=== PATIENT | female | born 1985 | race Caucasian/White ===

== ENCOUNTER 2018-10-16 13:14 | Emergency (ER) | payer MEDICAID, OTHER ==
[~2018-10-16 13:14] MED LIST: CYCL-1 PO; DIPH-423 PO; ONDA4TAB6 PO; ORPH100T2 PO; OXYC-145 PO; PANT-47 PO
--- NOTE | 2018-10-16 15:01 | NUR ---
PT CALLED TO TRIAGE X3, NOT IN LOBBY. ATTEMPTED TO CALL PT, PHONE # IS NOT A WORKING NUMBER
== END 2018-10-16 16:43 | disposition left against medical advice (07) ==
LOC: ER 13:15
DX: F41.9 Anxiety disorder, unspecified (principal); Z53.21 Procedure and treatment not carried out due to patient leaving prior to being seen by health care provider

== ENCOUNTER 2019-02-10 09:07 | Emergency (ER) | payer MEDICAID, OTHER ==
[~2019-02-10] VITALS: Ht 172.7 cm; Wt 48.5 kg
[2019-02-10 09:49] LABS: BASOPHILS % (AUTO) 0.4 % (0-1); EOSINOPHILS % (AUTO) 0.4 % (0-6); HEMATOCRIT 42.4 % (35.0-45.0); HEMOGLOBIN 14.1 g/dl (12.0-16.0); LYMPHOCYTES # (AUTO) 1.9 X10'3 (1.1-4.8); LYMPHOCYTES % (AUTO) 26.2 % (21-51); MEAN CORPUSCULAR HEMOGLOBIN 31.5 PG (27.0-31.0); MEAN CORPUSCULAR HGB CONC 33.3 g/dL (33.0-36.5); MEAN CORPUSCULAR VOLUME 94.6 FL (78-98); MEAN PLATELET VOLUME 7.4 FL (7.4-10.4); MONOCYTES # (AUTO) 0.6 X10'3 (0-0.9); MONOCYTES % (AUTO) 8.8 % (2-12); NEUTROPHILS # (AUTO) 4.6 X10'3 (1.8-7.7); NEUTROPHILS % (AUTO) 64.2 % (42-75); PLATELET COUNT 282 X10'3 (140-440); RED BLOOD COUNT 4.48 X10'6 (4.20-5.60); RED CELL DISTRIBUTION WIDTH 12.6 % (11.5-14.5); WHITE BLOOD COUNT 7.2 X10'3 (4.5-11.0)
[2019-02-10 10:03] LABS: ALANINE AMINOTRANSFERASE 19 U/L (12-78); ALKALINE PHOSPHATASE 74 IU/L (46-116); AMYLASE 68 U/L (25-115); ANION GAP 11 (8-16); ASPARTATE AMINO TRANSFERASE 12 U/L (10-37); BILIRUBIN,TOTAL 0.3 MG/DL (0.1-1.0); BLOOD UREA NITROGEN 9 MG/DL (7-18); BUN/CREATININE RATIO 13.2 (6.6-38.0); CALCIUM 9.3 MG/DL (8.5-10.1); CHLORIDE 105 MMOL/L (99-107); CREATININE 0.68 MG/DL (0.40-0.90); GLUCOSE 89 MG/DL (70-104); LIPASE 155 U/L (73-393); POTASSIUM 3.8 MMOL/L (3.5-5.1); SODIUM 141 MMOL/L (135-145); TOTAL CARBON DIOXIDE 24.7 MMOL/L (24-32); TOTAL PROTEIN 8.1 G/DL (6.4-8.2); eGFR > 90 ML/MIN
[2019-02-10 10:10] LABS: CLARITY,URINE CLOUDY (Clear); COLOR,URINE YELLOW (Yellow); GLUCOSE, URINE NEGATIVE (Neg); KETONES,URINE NEGATIVE (Neg); LEUKOCYTE ESTERASE ,URINE SMALL (Neg); NITRITES, URINE POSITIVE (Neg); OCCULT BLOOD,URINE NEGATIVE (Neg); PROTEIN,URINE 30 mg/dl (Neg); UA COLLECTION TYPE CLN CATCH MIDSTREAM
[2019-02-10 10:12] LABS: URINE HCG NEGATIVE (NEG)
[2019-02-10 10:17] LABS: BACTERIA,URINE 4+ /HPF (Neg); MUCUS STRANDS MODERATE /LPF (Neg); RBC,URINE 0-2 /HPF (0-2); SQUAMOUS EPITHELIAL CELL,UR MANY /LPF (FEW); WBC,URINE 30-50 /HPF (0-4)
[2019-02-10] MEDS ORDERED: ondansetron/PF 4mg/2ml inj IV ONE (10:30)
[2019-02-10] MEDS ORDERED: morphine 4 MG/ML inj SYRINge IV PRN (10:30)
[2019-02-10] MEDS ORDERED: normal saline 1000ML IV soln IVB ONE (10:30)
[2019-02-10 10:35] LABS: TRICHOMONAS,URINE FEW /HPF (NEGATIVE)
[2019-02-10 11:01] VITALS: BP 103/65
--- NOTE | 2019-02-10 11:02 | NUR ---
pt given a cup of water, pt is sipping on the water with no n/v at this time.
[2019-02-10] MEDS ORDERED: PROC-8 PO (11:23)
== END 2019-02-10 12:12 | disposition home or self-care (01) ==
LOC: ER 09:08
DX: R10.11 Right upper quadrant pain (principal); R11.2 Nausea with vomiting, unspecified; J45.909 Unspecified asthma, uncomplicated; G89.29 Other chronic pain; F12.90 Cannabis use, unspecified, uncomplicated; Z98.890 Other specified postprocedural states; Z88.3 Allergy status to other anti-infective agents; Z79.899 Other long term (current) drug therapy
CPT/HCPCS: 36415; 80053; 81001; 81025; 82150; 83690; 85025; 85610; 96374; 96375; 99283; J2270; J2405; J7030

== ENCOUNTER 2019-02-13 17:03 | Inpatient (IN) | payer MEDICAID ==
[~2019-02-13] VITALS: Ht 172.7 cm; Wt 72.0 kg
[~2019-02-13 17:03] MED LIST changes: +PROC-8 PO
[2019-02-13 17:52] LABS: CLARITY,URINE CLOUDY (Clear); COLOR,URINE YELLOW (Yellow); GLUCOSE, URINE NEGATIVE (Neg); KETONES,URINE NEGATIVE (Neg); LEUKOCYTE ESTERASE ,URINE TRACE (Neg); NITRITES, URINE POSITIVE (Neg); OCCULT BLOOD,URINE NEGATIVE (Neg); PH,URINE 6.5 (4.8-8.0); PROTEIN,URINE NEGATIVE (Neg); UA COLLECTION TYPE CLN CATCH MIDSTREAM; UROBILINOGEN,URINE 0.2 E.U/dL (0.2-1.0)
[2019-02-13 17:53] LABS: URINE HCG NEGATIVE (NEG)
[2019-02-13 18:18] LABS: BACTERIA,URINE 2+ /HPF (Neg); RBC,URINE NONE SEEN /HPF (0-2); SQUAMOUS EPITHELIAL CELL,UR FEW /LPF (FEW)
[2019-02-13 18:22] LABS: BASOPHILS % (AUTO) 0.4 % (0-1); EOSINOPHILS # (AUTO) 0.1 X10'3 (0-0.9); EOSINOPHILS % (AUTO) 0.7 % (0-6); HEMATOCRIT 38.6 % (35.0-45.0); HEMOGLOBIN 13.1 g/dl (12.0-16.0); LYMPHOCYTES # (AUTO) 3.6 X10'3 (1.1-4.8); LYMPHOCYTES % (AUTO) 35.1 % (21-51); MEAN CORPUSCULAR HEMOGLOBIN 32.2 PG (27.0-31.0); MEAN CORPUSCULAR VOLUME 94.8 FL (78-98); MEAN PLATELET VOLUME 7.7 FL (7.4-10.4); MONOCYTES # (AUTO) 0.7 X10'3 (0-0.9); MONOCYTES % (AUTO) 7.2 % (2-12); NEUTROPHILS # (AUTO) 5.8 X10'3 (1.8-7.7); NEUTROPHILS % (AUTO) 56.6 % (42-75); PLATELET COUNT 274 X10'3 (140-440); RED BLOOD COUNT 4.08 X10'6 (4.20-5.60); RED CELL DISTRIBUTION WIDTH 12.4 % (11.5-14.5); WHITE BLOOD COUNT 10.2 X10'3 (4.5-11.0)
[2019-02-13] MEDS ORDERED: morphine 4 MG/ML inj SYRINge IV ONE ×2 (18:25→20:30)
[2019-02-13] MEDS ORDERED: ondansetron/PF 4mg/2ml inj IV ONE (18:25)
[2019-02-13] MEDS ORDERED: normal saline 1000ML IV soln IVB ONE (18:25)
[2019-02-13 18:36] LABS: ALANINE AMINOTRANSFERASE 22 U/L (12-78); ALBUMIN 3.8 G/DL (3.4-5.0); ALBUMIN/GLOBULIN RATIO 1.1 (1.1-1.5); ALKALINE PHOSPHATASE 67 IU/L (46-116); ANION GAP 8 (8-16); ASPARTATE AMINO TRANSFERASE 13 U/L (10-37); BILIRUBIN,TOTAL 0.2 MG/DL (0.1-1.0); BLOOD UREA NITROGEN 9 MG/DL (7-18); BUN/CREATININE RATIO 11.1 (6.6-38.0); CHLORIDE 106 MMOL/L (99-107); CREATININE 0.81 MG/DL (0.40-0.90); GLUCOSE 98 MG/DL (70-104); LIPASE 199 U/L (73-393); POTASSIUM 3.8 MMOL/L (3.5-5.1); SODIUM 143 MMOL/L (135-145); TOTAL CARBON DIOXIDE 28.6 MMOL/L (24-32); TOTAL PROTEIN 7.4 G/DL (6.4-8.2); eGFR 82 ML/MIN
[2019-02-13] MEDS ORDERED: cephalexin 250mg capsule PO ONE (19:40)
[2019-02-13] MEDS ORDERED: CefTRIAXone 250MG IM Kit w/LIDOcaine IM ONE (19:45)
[2019-02-13] MEDS ORDERED: ondansetron/PF 4mg/2ml inj IV PRN (19:55)
[2019-02-13] MEDS ORDERED: magnesium 4gm in 100ml NS 100 ML IV PRN (19:55)
[2019-02-13] MEDS ORDERED: potassium Cl 20 mEq SR tablet PO PRN ×2 (19:55)
[2019-02-13] MEDS ORDERED: magnesium 2GM in 50ml NS 50 ML IV PRN (19:55)
[2019-02-13] MEDS ORDERED: magnesium Cl slow-release 64mg tablet PO PRN (19:55)
[2019-02-13] MEDS ORDERED: potassium CL 10mEq/100ml bag 100 ML IV PRN ×2 (19:55)
[2019-02-13] MEDS ORDERED: NO HOME MEDS (20:01)
[2019-02-13] MEDS: CefTRIAXone/D5W-Rocephin 1gm 50 ML IV SCH (20:19)
--- NOTE | 2019-02-13 21:25 | NUR ---
Patient in room [facility]. I have received report from nurse Peter RN from the ER and had the opportunity to ask questions and assume patient care.
[2019-02-13 21:32] VITALS: BP 108/70
--- NOTE | 2019-02-13 23:00 | NUR ---
Ns running at 100ml/hr as ordered. Piv site without s/s of complications. Addendum: 02/14/19 at 0742 by Stacy Santacruz RN Amended: Links added.
[2019-02-13] MEDS: normal saline 1000ml 1,000 ML IV SCH (23:59)
[2019-02-14] VITALS (15 sets, daily range): BP systolic 54–142; BP diastolic 40–111
[2019-02-14] MEDS: morphine 2 MG/ML inj. syringe IV PRN ×2 (00:02→08:04)
--- NOTE | 2019-02-14 00:05 | NUR ---
Pt. arrived on unit via w/c accompanied by ones of the ER staff member at approximately 2130. Pt is A& O and is mobile. Pt is NPO this shift. C/o mld pain though states, " they gave me pain medication in the ER." IV NS running at 100ml/hr as ordered. Iv. site without s/s of complications noted. No c/o n/v this shift. Addendum: 02/14/19 at 0521 by Stacy Santacruz RN Amended: Links added.
[2019-02-14 05:13] LABS: BASOPHILS % (AUTO) 0.4 % (0-1); EOSINOPHILS # (AUTO) 0.1 X10'3 (0-0.9); EOSINOPHILS % (AUTO) 1.5 % (0-6); LYMPHOCYTES # (AUTO) 3.4 X10'3 (1.1-4.8); LYMPHOCYTES % (AUTO) 42.2 % (21-51); MEAN CORPUSCULAR HEMOGLOBIN 31.5 PG (27.0-31.0); MEAN CORPUSCULAR HGB CONC 33.4 g/dL (33.0-36.5); MEAN CORPUSCULAR VOLUME 94.2 FL (78-98); MEAN PLATELET VOLUME 7.6 FL (7.4-10.4); MONOCYTES # (AUTO) 0.6 X10'3 (0-0.9); MONOCYTES % (AUTO) 8.1 % (2-12); NEUTROPHILS # (AUTO) 3.8 X10'3 (1.8-7.7); NEUTROPHILS % (AUTO) 47.8 % (42-75); PLATELET COUNT 231 X10'3 (140-440); RED BLOOD COUNT 3.82 X10'6 (4.20-5.60); RED CELL DISTRIBUTION WIDTH 12.6 % (11.5-14.5)
[2019-02-14 05:30] LABS: ALANINE AMINOTRANSFERASE 33 U/L (12-78); ALBUMIN 2.9 G/DL (3.4-5.0); ALBUMIN/GLOBULIN RATIO 0.9 (1.1-1.5); ALKALINE PHOSPHATASE 58 IU/L (46-116); ANION GAP 10 (8-16); ASPARTATE AMINO TRANSFERASE 23 U/L (10-37); BILIRUBIN,TOTAL 0.2 MG/DL (0.1-1.0); BLOOD UREA NITROGEN 6 MG/DL (7-18); BUN/CREATININE RATIO 10.7 (6.6-38.0); CALCIUM 7.9 MG/DL (8.5-10.1); CHLORIDE 109 MMOL/L (99-107); CREATININE 0.56 MG/DL (0.40-0.90); GLUCOSE 94 MG/DL (70-104); MAGNESIUM 1.7 MG/DL (1.5-2.4); SODIUM 141 MMOL/L (135-145); TOTAL CARBON DIOXIDE 22.3 MMOL/L (24-32); eGFR > 90 ML/MIN
--- NOTE | 2019-02-14 06:00 | NUR ---
Patient report given to nurse Farida MANJARREZ, questions answered & plan of care reviewed with . Addendum: 02/14/19 at 0806 by Stacy Santacruz RN Amended: Links added.
--- NOTE | 2019-02-14 07:18 | NUR ---
Patient in room [facility]. I have received report from TASNEEM MANJARREZ and had the opportunity to ask questions and assume patient care.
[2019-02-14] MEDS: K and/or MAG REPLACEMENT MC SCH (08:00)
[2019-02-14] MEDS ORDERED: CefTRIAXone/D5W-Rocephin 1gm 50 ML IV SCH (08:00)
[2019-02-14] MEDS: CefTRIAXone/D5W-Rocephin 1gm 50 ML IV SCH (08:04)
[2019-02-14] MEDS: normal saline 1000ml 1,000 ML IV SCH ×2 (12:01→22:23)
[2019-02-14] MEDS: HYDROmorphone inj. 0.5 MG/0.5 ML DISP.SYRIN IV PRN ×3 (12:01→20:51)
--- NOTE | 2019-02-14 16:30 | NUR ---
PT IS VERY EMOTIONAL TODAY. SHE IS ON THE PHONE IN GREAT DISTRESS DUE TO PERSONAL ISSUES.
[2019-02-14] MEDS ORDERED: ringers solution, lacted 1,000 ML IV SCH (17:34)
[2019-02-14] MEDS ORDERED: ondansetron/PF 4mg/2ml inj IV PRN ×2 (17:35→19:20)
[2019-02-14] MEDS ORDERED: proCHLORperazine 10 MG/2 ml inj IV PRN (17:35)
[2019-02-14] MEDS ORDERED: meperidine/PF 25mg/ml syringe IV PRN ×2 (17:35)
[2019-02-14] MEDS ORDERED: morphine 4 MG/ML inj SYRINge IV PRN ×2 (17:35)
[2019-02-14] MEDS ORDERED: BUPIVAcaine/PF 2.5 mg/ml (0.25%) 30ml vial ONE (17:38)
[2019-02-14] MEDS ORDERED: ceFAZolin 1000mg inj ONE (17:38)
[2019-02-14] MEDS ORDERED: sevoflurane 250ml liquid IH ONE (18:17)
[2019-02-14] MEDS ORDERED: ketorolac trometh. 30mg/ml inj. ONE (18:17)
[2019-02-14] MEDS ORDERED: dexamethasone sod phosphate 10mg/ml inj ONE (18:17)
[2019-02-14] MEDS ORDERED: ondansetron/PF 4mg/2ml inj ONE (18:17)
[2019-02-14] MEDS ORDERED: neostigmine methylsulfate 1 MG/ML 10ml vial ONE (18:17)
[2019-02-14] MEDS ORDERED: ceFOXitin 2 GM ADDVANTGE BAG 50 ML IV ONE (18:19)
[2019-02-14] MEDS ORDERED: fentaNYL/PF 50MCG/1 ML 2ML syringe ONE (18:20)
[2019-02-14] MEDS ORDERED: midazolam 2 mg/2 ml injection ONE (18:20)
--- NOTE | 2019-02-14 18:25 | NUR ---
Problems reprioritized. Patient report given, questions answered & plan of care reviewed with CARLOS MANJARREZ.
[2019-02-14] MEDS ORDERED: LIDOcaine 2% (20mg/ml) 5ml vial ONE (18:42)
[2019-02-14] MEDS ORDERED: propofol inj 20 ML IV ONE (18:42)
[2019-02-14] MEDS ORDERED: rocuronium 10mg/ml inj IV ONE (18:42)
[2019-02-14] MEDS ORDERED: acetaminophen 1,000mg/100ml IV 100 ML IV ONE (19:04)
[2019-02-14] MEDS ORDERED: glycopyrrolate 0.2mg/ml inj ONE (19:07)
--- NOTE | 2019-02-14 19:20 | NUR ---
Received from OR via , accompanied by Anesthesiologist TRIP and report given by Anesthesiolgist. AWAKE IN NO RESP DISTRESS SKIN WARM AND DRY HOB ELEVATED, ABD SOFT DSG DI, CO ABD PAIN ACHE, SCDS ON, VOIDED 400ML CLEAR YELLOW.
[2019-02-14] MEDS: meperidine/PF 25mg/ml syringe IV PRN ×2 (19:35→19:45)
--- NOTE | 2019-02-14 19:59 | NUR ---
Report called to receiving nurse. Transferred via BED Belongings . Special Issues communicated to receiving nurse.AWAKE VS WNL, PAIN DECREASED AFTER IV MED TO A 6, BUT SLEEPS WHEN NOT DISTURBED. ABD SOFT DSG DI, SCDS CONT TO ROOM AT 2000
[2019-02-14] MEDS: lactobacillus rhamnosus 10,000 MMU CELLS/CAPSULE PO SCH (20:00)
[2019-02-14] MEDS: ketorolac trometh. 30mg/ml inj. IV PRN (20:10)
[2019-02-14] MEDS: HYDROcodone/acetaminophen 10/325mg tab PO PRN (23:17)
--- NOTE | 2019-02-14 23:20 | NUR ---
Patient in room [facility]. I have received report from LOKI Iqbal and had the opportunity to ask questions and assume patient care. Addendum: 02/14/19 at 2322 by Ruma Joyce RN Amended: Links added.
[2019-02-15] VITALS: BP 94/47
[2019-02-15] MEDS: morphine 2 MG/ML inj. syringe IV PRN (01:52)
[2019-02-15] MEDS: normal saline 1000ml 1,000 ML IV SCH ×2 (01:53→07:23)
[2019-02-15] MEDS: ketorolac trometh. 30mg/ml inj. IV PRN (04:19)
[2019-02-15 04:37] VITALS: BP 94/54
[2019-02-15 05:16] LABS: BASOPHILS % (AUTO) 0.5 % (0-1); EOSINOPHILS % (AUTO) 0 % (0-6); HEMATOCRIT 35.2 % (35.0-45.0); HEMOGLOBIN 11.8 g/dl (12.0-16.0); LYMPHOCYTES # (AUTO) 1.3 X10'3 (1.1-4.8); LYMPHOCYTES % (AUTO) 19.4 % (21-51); MEAN CORPUSCULAR HEMOGLOBIN 31.6 PG (27.0-31.0); MEAN CORPUSCULAR HGB CONC 33.5 g/dL (33.0-36.5); MEAN CORPUSCULAR VOLUME 94.4 FL (78-98); MEAN PLATELET VOLUME 8.1 FL (7.4-10.4); MONOCYTES # (AUTO) 0.3 X10'3 (0-0.9); NEUTROPHILS # (AUTO) 5.1 X10'3 (1.8-7.7); NEUTROPHILS % (AUTO) 76.1 % (42-75); PLATELET COUNT 214 X10'3 (140-440); RED BLOOD COUNT 3.73 X10'6 (4.20-5.60); RED CELL DISTRIBUTION WIDTH 12.4 % (11.5-14.5); WHITE BLOOD COUNT 6.7 X10'3 (4.5-11.0)
[2019-02-15 05:39] LABS: ALANINE AMINOTRANSFERASE 29 U/L (12-78); ALBUMIN 2.9 G/DL (3.4-5.0); ALKALINE PHOSPHATASE 58 IU/L (46-116); ANION GAP 9 (8-16); ASPARTATE AMINO TRANSFERASE 17 U/L (10-37); BILIRUBIN,TOTAL 0.3 MG/DL (0.1-1.0); BLOOD UREA NITROGEN 6 MG/DL (7-18); BUN/CREATININE RATIO 11.5 (6.6-38.0); CALCIUM 8.1 MG/DL (8.5-10.1); CHLORIDE 107 MMOL/L (99-107); CREATININE 0.52 MG/DL (0.40-0.90); GLUCOSE 114 MG/DL (70-104); MAGNESIUM 1.5 MG/DL (1.5-2.4); SODIUM 139 MMOL/L (135-145); TOTAL CARBON DIOXIDE 22.8 MMOL/L (24-32); TOTAL PROTEIN 5.9 G/DL (6.4-8.2); eGFR > 90 ML/MIN
--- NOTE | 2019-02-15 06:10 | NUR ---
Patient in room [facility]. I have received report from Ruma MANJARREZ and had the opportunity to ask questions and assume patient care.
--- NOTE | 2019-02-15 06:31 | NUR ---
Problems reprioritized. Patient report given, questions answered & plan of care reviewed with LOKI Sharma. Addendum: 02/15/19 at 0632 by Ruma Joyce RN Amended: Links added.
[2019-02-15] MEDS: lactobacillus rhamnosus 10,000 MMU CELLS/CAPSULE PO SCH (07:20)
[2019-02-15] MEDS: CefTRIAXone/D5W-Rocephin 1gm 50 ML IV SCH (07:20)
[2019-02-15] MEDS: HYDROcodone/acetaminophen 10/325mg tab PO PRN ×2 (07:21→11:57)
[2019-02-15] MEDS: K and/or MAG REPLACEMENT MC SCH (08:00)
[2019-02-15] MEDS: HYDROmorphone inj. 0.5 MG/0.5 ML DISP.SYRIN IV PRN (08:50)
[2019-02-15] MEDS ORDERED: HYDR-3965 PO (10:03)
[2019-02-15 11:31] VITALS: BP 127/77
--- NOTE | 2019-02-15 12:17 | NUR ---
Patient ambulated 300 feet with contact guard by RN. Patient tolerated well, pain was at a 4 during ambulation. Will continue to monitor.
--- NOTE | 2019-02-15 13:32 | NUR ---
Paged Dr. Ramos for discharge orders. PAGER ID: [phone] MESSAGE: [phone] RE: Aminta Noel: Dr. Caceres assessed the patient, and gave the ok to discharge her. Can you please put in orders? Thank you, Edith Bravo [phone]
--- NOTE | 2019-02-15 15:19 | NUR ---
Patient stable for discharge per MD order. Discharge instructions given, all questions answered and concerns addressed. Written rx given to patient. Bus pass given. PIV d/c'd, cannula intact. All belonging sent with patient. Patient wheeled to front of hospital by RN.
== END 2019-02-15 15:55 | disposition home or self-care (01) | DRG 263 ==
LOC: ER 17:03 → SUR 3N 21:25
PROVIDERS: ADMIT Internal Medicine; ATTEND Internal Medicine
PROC: 0FT44ZZ Resection of Gallbladder, Percutaneous Endoscopic Approach (ICD-10-PCS; principal; 2019-02-14 18:17)
DX: K80.01 Calculus of gallbladder with acute cholecystitis with obstruction (principal); F17.210 Nicotine dependence, cigarettes, uncomplicated; N39.0 Urinary tract infection, site not specified; J45.909 Unspecified asthma, uncomplicated; G89.29 Other chronic pain; M54.9 Dorsalgia, unspecified; F32.9 Major depressive disorder, single episode, unspecified; F41.9 Anxiety disorder, unspecified; Z88.1 Allergy status to other antibiotic agents; Z87.11 Personal history of peptic ulcer disease; Z98.891 History of uterine scar from previous surgery
CPT/HCPCS: 36415; 76700; 80053; 81001; 81025; 82948; 83690; 83735; 85025; 85610; 87077; 87081; 87088; 87186; 93005; 96361; 96374; 96375; 99285; A4215; A4618; A7000; G0378; J0131; J0690; J0694; J0696; J1100; J1170; J1885; J2001; J2175; J2250; J2270; J2405; J2704; J2710; J3010; J3490; J7030; J7120